=== PATIENT | female | born 1995 | race American Indian/Alaskan Native ===

== ENCOUNTER 2017-03-25 14:12 | Emergency (ER) | payer OTHER ==
[2017-03-25 14:19] VITALS: BMI 41.1
[2017-03-25 14:23] VITALS: BP 147/83; PULSE 119; RESP 18; TEMP 98.3; O2SAT 99
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
--- NOTE | 2017-03-25 15:58 | RAD ---
PROCEDURE: Left Hand Radiographs. HISTORY: Pain COMPARISON: None. FINDINGS: BONES: Bone alignment and mineralization are normal. No acute fracture. JOINTS: Normal. SOFT TISSUES: Normal. OTHER FINDINGS: None. IMPRESSION: No acute fracture or dislocation.
--- NOTE | 2017-03-25 16:04 | RAD ---
PROCEDURE: Right Knee Radiographs. HISTORY: Pain COMPARISON: None. FINDINGS: BONES: Bone alignment and mineralization are normal. No acute fracture. JOINTS: Normal. No osteoarthritis. JOINT EFFUSION: There is a small suprapatellar joint effusion. OTHER FINDINGS: None. IMPRESSION: No acute fracture or dislocation. Small suprapatellar joint effusion.
== END 2017-03-25 16:37 | disposition home or self-care (01) ==
LOC: ED 14:12
DX: M25.461 Effusion, right knee (principal); M25.561 Pain in right knee